=== PATIENT | male | born 1980 | race Caucasian/White ===

== ENCOUNTER 2018-05-11 19:30 | Emergency (ER) | payer OTHER ==
[~2018-05-11] VITALS: Ht 182.9 cm; Wt 95.3 kg
[~2018-05-11 19:30] MED LIST: DOXYCYCLINE 10100 MG PO; HYDROCODON-ACE1 EAC7 PO; HYDROCODONE-AP1 EAC6 PO; LIDOCAINE VISC100 M1 SWISH&SPIT; NICOTINE TRANSD21 M1 TRANSDERM; NORCO 5-325 TA1 EAC1 PO; PENICILLIN V P500 MG PO; PENICILLIN VK250 MG PO; TRAMADOL 50 MG50 MG PO; VICODIN ES TAB1 EACH; [UNRECOGNIZED DRUG - REMARK]
[2018-05-11 19:54] LABS: ABSOLUTE BASOPHILS 0.1 thou/uL (0.0-0.2); ABSOLUTE EOSINOPHILS 0.3 thou/uL (0.0-0.7); ABSOLUTE LYMPHOCYTES 5.8 thou/uL (0.8-5.3); ABSOLUTE MONOCYTES 1.3 thou/uL (0.0-1.2); ABSOLUTE NEUTROPHILS 7.8 thou/uL (1.6-8.1); BASOPHILS 0.6 %; HEMATOCRIT 43.7 % (42.0-52.0); HEMOGLOBIN 14.4 gm/dL (14.0-18.0); LYMPHOCYTES 37.9 %; MCH 31.1 pg (26.0-34.0); MCHC 32.9 g/dL (28.0-37.0); MCV 94.5 fL (80.0-100.0); MONOCYTES 8.4 %; MPV 6.6 fl. (7.2-11.1); NUCLEATED RBCS 0 /100WBC; PLATELET COUNT* 429 thou/uL (150-400); POLYS 51.1 %; RBC 4.62 mil/uL (4.50-6.00); RDW-CV 14.2 % (10.5-14.5); WBC 15.2 thou/uL (4.0-11.0)
[2018-05-11 20:04] LABS: CALCIUM 9.6 mg/dL (8.5-10.1); POTASSIUM 4.5 mmol/L (3.5-5.1)
[2018-05-11 20:09] LABS: ALBUMIN 4.1 g/dL (3.4-5.0); TOTAL BILIRUBIN 0.5 mg/dL (<0.1-1.0); TOTAL PROTEIN 7.6 g/dL (6.4-8.2)
[2018-05-11] MEDS ORDERED: NORCO 7.5-3251 EACH PO (20:47)
[2018-05-11 21:16] VITALS: BP 123/64
== END 2018-05-11 21:22 | disposition home or self-care (01) ==
LOC: M.ERS 19:30
PROVIDERS: Emergency Medicine
DX: S43.102A Unspecified dislocation of left acromioclavicular joint, initial encounter (principal); W10.9XXA Fall (on) (from) unspecified stairs and steps, initial encounter; Y93.89 Activity, other specified; Y92.89 Other specified places as the place of occurrence of the external cause; Y99.8 Other external cause status; F17.210 Nicotine dependence, cigarettes, uncomplicated

== ENCOUNTER 2018-10-02 14:06 | Emergency (ER) | payer OTHER ==
[~2018-10-02] VITALS: Ht 182.9 cm; Wt 86.2 kg
[~2018-10-02 14:06] MED LIST changes: +NORCO 7.5-3251 EACH PO
[2018-10-02] MEDS ORDERED: HYDROCODONE-AP1 EAC6 PO (15:04)
[2018-10-02 15:31] VITALS: BP 145/92
== END 2018-10-02 15:32 | disposition home or self-care (01) ==
LOC: M.ERS 14:06
DX: S43.015A Anterior dislocation of left humerus, initial encounter (principal); F17.210 Nicotine dependence, cigarettes, uncomplicated; Z88.6 Allergy status to analgesic agent; X50.1XXA Overexertion from prolonged static or awkward postures, initial encounter; Y92.89 Other specified places as the place of occurrence of the external cause; Y93.H1 Activity, digging, shoveling and raking; Y99.8 Other external cause status

== ENCOUNTER 2019-02-10 07:41 | Emergency (ER) | payer OTHER ==
[~2019-02-10] VITALS: Ht 172.7 cm; Wt 75.8 kg
[2019-02-10 08:08] LABS: ABSOLUTE BASOPHILS 0.1 thou/uL (0.0-0.2); ABSOLUTE EOSINOPHILS 0.2 thou/uL (0.0-0.7); ABSOLUTE LYMPHOCYTES 1.8 thou/uL (0.8-5.3); ABSOLUTE MONOCYTES 0.9 thou/uL (0.0-1.2); ABSOLUTE NEUTROPHILS 9.7 thou/uL (1.6-8.1); BASOPHILS 0.5 %; EOSINOPHILS 1.7 %; HEMOGLOBIN 14.1 gm/dL (14.0-18.0); LYMPHOCYTES 14.4 %; MCH 32.1 pg (26.0-34.0); MCHC 34.5 g/dL (28.0-37.0); MCV 93.3 fL (80.0-100.0); MONOCYTES 7.4 %; MPV 6.8 fl. (7.2-11.1); NUCLEATED RBCS 0 /100WBC; PLATELET COUNT* 340 thou/uL (150-400); RBC 4.39 mil/uL (4.50-6.00); RDW-CV 13.4 % (10.5-14.5); WBC 12.8 thou/uL (4.0-11.0)
[2019-02-10 08:15] LABS: CREATININE 0.8 mg/dL (0.6-1.3); POTASSIUM 3.7 mmol/L (3.5-5.1)
[2019-02-10 08:20] LABS: ALBUMIN 3.8 g/dL (3.4-5.0); TOTAL BILIRUBIN 0.5 mg/dL (<0.1-1.0); TOTAL PROTEIN 7.1 g/dL (6.4-8.2)
[2019-02-10 09:53] VITALS: BP 123/78
== END 2019-02-10 09:53 | disposition short-term general hospital (02) ==
LOC: M.ERS 07:41
PROVIDERS: Family Medicine
DX: S00.83XA Contusion of other part of head, initial encounter (principal); S20.412A Abrasion of left back wall of thorax, initial encounter; S20.411A Abrasion of right back wall of thorax, initial encounter; J93.9 Pneumothorax, unspecified; F17.210 Nicotine dependence, cigarettes, uncomplicated; I10 Essential (primary) hypertension; Z88.6 Allergy status to analgesic agent; Y04.2XXA Assault by strike against or bumped into by another person, initial encounter; Y92.89 Other specified places as the place of occurrence of the external cause; Y93.89 Activity, other specified; Y99.8 Other external cause status

== ENCOUNTER 2019-04-20 14:37 | Emergency (ER) | payer OTHER, MEDICAID ==
[~2019-04-20] VITALS: Ht 182.9 cm; Wt 81.7 kg
[2019-04-20] MEDS ORDERED: MELOXICAM15 MG PO ×2 (14:59→15:00)
[2019-04-20 15:24] VITALS: BP 190/90
== END 2019-04-20 15:19 ==
LOC: M.ERS 14:37
DX: M25.512 Pain in left shoulder (principal); I10 Essential (primary) hypertension; F17.210 Nicotine dependence, cigarettes, uncomplicated; Z98.890 Other specified postprocedural states; Z88.6 Allergy status to analgesic agent

== ENCOUNTER 2019-06-17 17:02 | Emergency (ER) | payer OTHER, MEDICAID ==
[~2019-06-17] VITALS: Ht 182.9 cm; Wt 77.1 kg
[~2019-06-17 17:02] MED LIST changes: +MELOXICAM15 MG PO
[2019-06-17] MEDS ORDERED: NORCO 5-325 TA1 EAC1 PO (18:39)
[2019-06-17 19:26] VITALS: BP 152/103
== END 2019-06-17 19:28 | disposition home or self-care (01) ==
LOC: M.ERS 17:02
DX: S43.085A Other dislocation of left shoulder joint, initial encounter (principal); I10 Essential (primary) hypertension; F17.210 Nicotine dependence, cigarettes, uncomplicated; Z88.8 Allergy status to other drugs, medicaments and biological substances; X58.XXXA Exposure to other specified factors, initial encounter; Y92.89 Other specified places as the place of occurrence of the external cause; Y93.89 Activity, other specified; Y99.8 Other external cause status

== ENCOUNTER 2019-06-22 23:14 | Emergency (ER) | payer OTHER, MEDICAID ==
[~2019-06-22] VITALS: Ht 182.9 cm; Wt 79.0 kg
[2019-06-23] MEDS ORDERED: TYLENOL WITH CO1 TA1 PO (00:28)
[2019-06-23 01:08] VITALS: BP 111/62
== END 2019-06-23 02:20 | disposition home or self-care (01) ==
LOC: M.ERS 23:14
DX: S86.111A Strain of other muscle(s) and tendon(s) of posterior muscle group at lower leg level, right leg, initial encounter (principal); I10 Essential (primary) hypertension; F17.210 Nicotine dependence, cigarettes, uncomplicated; Z98.890 Other specified postprocedural states; Z88.8 Allergy status to other drugs, medicaments and biological substances; X50.0XXA Overexertion from strenuous movement or load, initial encounter; Y92.89 Other specified places as the place of occurrence of the external cause; Y93.89 Activity, other specified; Y99.8 Other external cause status

== ENCOUNTER 2019-06-29 05:37 | Emergency (ER) | payer OTHER, MEDICAID ==
[~2019-06-29] VITALS: Ht 182.9 cm; Wt 78.9 kg
[~2019-06-29 05:37] MED LIST changes: +TYLENOL WITH CO1 TA1 PO
[2019-06-29] MEDS ORDERED: NORCO 5-325 TA1 EAC1 PO (06:26)
[2019-06-29 08:02] VITALS: BP 108/87
== END 2019-06-29 08:03 | disposition home or self-care (01) ==
LOC: M.ERS 05:37
DX: S43.015A Anterior dislocation of left humerus, initial encounter (principal); I10 Essential (primary) hypertension; F17.210 Nicotine dependence, cigarettes, uncomplicated; Z88.6 Allergy status to analgesic agent; V19.69XA Unspecified pedal cyclist injured in collision with other motor vehicles in traffic accident, initial encounter; Y93.89 Activity, other specified; Y92.89 Other specified places as the place of occurrence of the external cause; Y99.8 Other external cause status

== ENCOUNTER 2019-07-04 01:31 | Emergency (ER) | payer OTHER, MEDICAID ==
[~2019-07-04] VITALS: Ht 182.9 cm; Wt 81.7 kg
[2019-07-04] MEDS ORDERED: PERCOCET 5-3251 EACH PO (02:00)
[2019-07-04 03:05] VITALS: BP 138/91
== END 2019-07-04 03:05 | disposition home or self-care (01) ==
LOC: M.ERS 01:31
DX: S43.005A Unspecified dislocation of left shoulder joint, initial encounter (principal); I10 Essential (primary) hypertension; F43.10 Post-traumatic stress disorder, unspecified; F17.210 Nicotine dependence, cigarettes, uncomplicated; Z88.5 Allergy status to narcotic agent; X50.0XXA Overexertion from strenuous movement or load, initial encounter; Y93.89 Activity, other specified; Y92.89 Other specified places as the place of occurrence of the external cause; Y99.8 Other external cause status

== ENCOUNTER 2019-07-06 08:58 | Emergency (ER) | payer OTHER, MEDICAID ==
[~2019-07-06] VITALS: Ht 182.9 cm; Wt 79.4 kg
[~2019-07-06 08:58] MED LIST changes: +PERCOCET 5-3251 EACH PO
[2019-07-06 09:53] VITALS: BP 148/86
== END 2019-07-06 09:53 | disposition home or self-care (01) ==
LOC: M.ERS 08:58
DX: M25.512 Pain in left shoulder (principal); I10 Essential (primary) hypertension; F17.210 Nicotine dependence, cigarettes, uncomplicated; Z88.6 Allergy status to analgesic agent

== ENCOUNTER 2019-07-06 17:55 | Emergency (ER) | payer OTHER, MEDICAID ==
[~2019-07-06] VITALS: Ht 182.9 cm; Wt 81.7 kg
[2019-07-06 18:06] VITALS: BP 126/87
== END 2019-07-06 18:07 ==
LOC: M.ERS 17:55
DX: M25.512 Pain in left shoulder (principal); I10 Essential (primary) hypertension; F17.210 Nicotine dependence, cigarettes, uncomplicated; Z88.6 Allergy status to analgesic agent

== ENCOUNTER 2019-08-05 11:03 | Emergency (ER) | payer OTHER, MEDICAID ==
[~2019-08-05] VITALS: Ht 182.9 cm; Wt 81.7 kg
[2019-08-05] MEDS ORDERED: ZANAFLEX4 MG PO (11:34)
[2019-08-05] MEDS ORDERED: IBUPROFEN 800800 M1 PO (11:34)
[2019-08-05] MEDS ORDERED: AUGMENTIN 875-1 EACH PO (13:07)
[2019-08-05 13:29] VITALS: BP 118/76
== END 2019-08-05 13:17 | disposition home or self-care (01) ==
LOC: M.ERS 11:03
DX: S16.1XXA Strain of muscle, fascia and tendon at neck level, initial encounter (principal); S29.012A Strain of muscle and tendon of back wall of thorax, initial encounter; S60.221A Contusion of right hand, initial encounter; S20.211A Contusion of right front wall of thorax, initial encounter; S00.83XA Contusion of other part of head, initial encounter; S00.03XA Contusion of scalp, initial encounter; J32.9 Chronic sinusitis, unspecified; I10 Essential (primary) hypertension; F17.210 Nicotine dependence, cigarettes, uncomplicated; Z88.6 Allergy status to analgesic agent; Y08.89XA Assault by other specified means, initial encounter; Y93.89 Activity, other specified; Y92.89 Other specified places as the place of occurrence of the external cause; Y99.8 Other external cause status

== ENCOUNTER 2019-08-14 20:15 | Emergency (ER) | payer OTHER, MEDICAID ==
[~2019-08-14] VITALS: Ht 182.9 cm; Wt 81.7 kg
[~2019-08-14 20:15] MED LIST changes: +AUGMENTIN 875-1 EACH PO; +IBUPROFEN 800800 M1 PO; +ZANAFLEX4 MG PO
[2019-08-14 20:48] LABS: ABSOLUTE BASOPHILS 0.1 thou/uL (0.0-0.2); ABSOLUTE EOSINOPHILS 0.3 thou/uL (0.0-0.7); ABSOLUTE LYMPHOCYTES 1.8 thou/uL (0.8-5.3); ABSOLUTE MONOCYTES 0.8 thou/uL (0.0-1.2); ABSOLUTE NEUTROPHILS 4.3 thou/uL (1.6-8.1); BASOPHILS 0.9 %; EOSINOPHILS 3.6 %; HEMATOCRIT 40.6 % (42.0-52.0); HEMOGLOBIN 13.9 gm/dL (14.0-18.0); LYMPHOCYTES 25.2 %; MCH 32.6 pg (26.0-34.0); MCHC 34.2 g/dL (28.0-37.0); MCV 95.2 fL (80.0-100.0); MONOCYTES 10.9 %; MPV 6.9 fl. (7.2-11.1); NUCLEATED RBCS 0 /100WBC; PLATELET COUNT* 350 thou/uL (150-400); POLYS 59.4 %; RBC 4.27 mil/uL (4.50-6.00); RDW-CV 14.4 % (10.5-14.5); WBC 7.3 thou/uL (4.0-11.0)
[2019-08-14 20:57] LABS: CALCIUM 7.9 mg/dL (8.5-10.1); CREATININE 0.9 mg/dL (0.6-1.3); POTASSIUM 3.7 mmol/L (3.5-5.1)
[2019-08-14 21:01] LABS: ALBUMIN 3.8 g/dL (3.4-5.0); TOTAL BILIRUBIN 0.3 mg/dL (<0.1-1.0)
[2019-08-14 21:22] VITALS: BP 120/78
[2019-08-15] MEDS ORDERED: HYDROXYZINE HCL25 M2 PO ×2 (09:01)
--- NOTE | 2019-08-15 09:45 | EKG ---
[place] [address] ELECTROCARDIOGRAM REPORT Name: FAMILIA WOODS TODMIRNA Room: [facility]#: [id number] Admission: 08/14/19 Attend Phys: Discharge: 08/14/19 Date of : 76 Date of Service: 08/14/192028 Report #: [id number] THIS REPORT FOR: //name// [facility] ED Test Date: 2019-08-14 Test Time: 20:29:54 Pat Name: FAMILIA WOODS Department: Room: Gender: Crop Nutrition Scientist: [place] : 1980 Requested By: Anatoliy Wang Order Number: [id number] MD: Isaac Covington Measurements Intervals [place] Rate: 83 P: 59 [place]: 138 QRS: 67 QRSD: 93 T: 38 QT: 368 QTc: 433 Interpretive Statements Sinus rhythm ST elev, probable normal early repol pattern Baseline wander in lead(s) V2 Compared to ECG 04/28/2016 07:55:27 No significant changes Electronically Signed On 08-15-2019 9:44:26 MANAGER FIELD by Isaac Covington [email or web address] <ELECTRONICALLY SIGNED> By: Isaac Covington MD, [facility] 08/15/19 0944 28 28 Isaac Covington MD, [facility] /EPI
== END 2019-08-14 21:22 | disposition home or self-care (01) ==
LOC: M.ERS 20:15
PROVIDERS: Emergency Medicine Emergency Medical Services
DX: R56.9 Unspecified convulsions (principal); F17.210 Nicotine dependence, cigarettes, uncomplicated; Z88.6 Allergy status to analgesic agent; I10 Essential (primary) hypertension

== ENCOUNTER 2019-08-15 02:08 | Observation (INO) | payer OTHER, MEDICAID ==
[~2019-08-15] VITALS: Ht 182.9 cm; Wt 81.6 kg
--- NOTE | ~2019-08-15 | EEG ---
[address] [address] EEG STUDY REPORT Name: FAMILIA WOODS Room: [address] [place]#: [id number] Admission: 08/15/19 Attend Phys: Stephanie Weeks Discharge: Date of : 76 Report #: [id number] THIS REPORT FOR: //name// CC: [facility] physician/PCP Arian Pimentel DATE OF SERVICE: 08/15/2019 This patient is being evaluated for the possibility of seizure. EEG was done by placing the electrode by standard 10-20 system of electrode placement. Both referential and sequential montages were used for recording. Background activity in this patient's EEG is about 10 Hz and 30 microvolt. It is a symmetrical activity. The patient became drowsy and that is associated with bilateral slowing. Photic stimulation is unremarkable. Throughout the record, no active epileptiform activity was noticed. IMPRESSION: This patient's EEG is unremarkable. No active epileptiform activity was noticed. It might be mentioned that EEG can be normal in a patient with seizure disorder. Thank you very much for this referral. By: [id number] Harvey MD /nt
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
[2019-08-15 02:32] LABS: NUCLEATED RBCS 0 /100WBC
[2019-08-15 02:33] LABS: ABSOLUTE BASOPHILS 0.1 thou/uL (0.0-0.2); ABSOLUTE EOSINOPHILS 0.3 thou/uL (0.0-0.7); ABSOLUTE NEUTROPHILS 5.7 thou/uL (1.6-8.1); BASOPHILS 1.1 %; EOSINOPHILS 3.4 %; HEMATOCRIT 40.7 % (42.0-52.0); HEMOGLOBIN 14.1 gm/dL (14.0-18.0); LYMPHOCYTES 29.7 %; MCH 32.9 pg (26.0-34.0); MCHC 34.7 g/dL (28.0-37.0); MCV 94.7 fL (80.0-100.0); MONOCYTES 9.9 %; MPV 6.7 fl. (7.2-11.1); PLATELET COUNT* 368 thou/uL (150-400); POLYS 55.9 %; RBC 4.29 mil/uL (4.50-6.00); RDW-CV 14.6 % (10.5-14.5); WBC 10.2 thou/uL (4.0-11.0)
[2019-08-15 02:34] VITALS: BP 120/80
[2019-08-15 02:35] LABS: URINE BILIRUBIN NEGATIVE (Negative); URINE BLOOD 1+ (Negative); URINE CLARITY CLEAR; URINE COLOR YELLOW; URINE GLUCOSE-RANDOM NEGATIVE (Negative); URINE KETONES NEGATIVE (Negative); URINE LEUKOCYTES-REFLEX NEGATIVE (Negative); URINE NITRITE-REFLEX NEGATIVE (Negative); URINE PROTEIN NEGATIVE (Negative); URINE SPECIFIC GRAVITY 1.025 (1.005-1.030); URINE UROBILINOGEN 0.2 E.U./dl (0.2-1.0)
[2019-08-15 02:41] LABS: CALCIUM 8.5 mg/dL (8.5-10.1); CREATININE 0.8 mg/dL (0.6-1.3); POTASSIUM 4.1 mmol/L (3.5-5.1)
[2019-08-15 02:43] LABS: AMP/METHAMP POSITIVE (Negative); BARBITURATES Negative (Negative); BENZODIAZEPINES Negative (Negative); COCAINE Negative (Negative); METHADONE Negative (Negative); OPIATES Negative (Negative); PCP Negative (Negative); THC Negative (Negative)
[2019-08-15 02:44] LABS: BACTERIA-REFLEX None Seen /HPF (None Seen); CASTS None Seen /LPF (None Seen); CRYSTALS None Seen /LPF (None Seen); SQUAMOUS NONE SEEN /LPF (0-3); URINE RBC 3-10 Few /HPF (0-2); URINE WBC-REFLEX None Seen /HPF (0-5)
[2019-08-15 02:45] LABS: ALBUMIN 3.9 g/dL (3.4-5.0); TOTAL BILIRUBIN 0.3 mg/dL (<0.1-1.0); TOTAL PROTEIN 7.2 g/dL (6.4-8.2)
[2019-08-15 08:57] VITALS: BP 108/63
[2019-08-15] MEDS ORDERED: HYDROXYZINE HCL25 M2 PO ×2 (09:01)
--- NOTE | 2019-08-15 09:46 | EKG ---
[place] [address] ELECTROCARDIOGRAM REPORT Name: FAMILIA WOODS TODMIRNA Room: [address] M.R.#: [id number] Admission: 08/15/19 Attend Phys: Arian Pimentel Discharge: Date of : 76 Date of Service: 08/15/19221 Report #: [id number] THIS REPORT FOR: //name// [facility] ED Test Date: 2019-08-15 Test Time: 02:22:02 Pat Name: FAMILIA WOODS Department: Room: [facility] Gender: M Marketing Developer: [place] : 1980 Requested By: Anatoliy Wang Order Number: [id number] MD: Isaac Covington Measurements Intervals [place] Rate: 74 P: 61 [place]: 143 QRS: 84 QRSD: 92 T: 53 QT: 393 QTc: 436 Interpretive Statements Sinus rhythm ST elev, probable normal early repol pattern Compared to ECG 04/28/2016 07:55:27 No significant changes Electronically Signed On 08-15-2019 9:45:16 MANAGER DEVELOPMENTAL by Isaac Covington [email or web address] <ELECTRONICALLY SIGNED> By: Isaac Covington MD, [facility] 08/15/19 0945 1 1 Isaac Covington MD, [facility] /EPI
[2019-08-15 14:14] VITALS: BP 110/62
--- NOTE | 2019-08-15 17:15 | NUR ---
NEUROLOGY CONSULT CALLED R/T CONSULT; DR ROSEN ORDER RECEIVED CLEARED FROM NEUROLOGY AND FOLLOW UP WITH OUTPATIENT NEUROLOGY APPOINTMENT WITH DR DODSON
[2019-08-15 17:28] VITALS: BP 110/62
--- NOTE | 2019-08-15 18:43 | NUR ---
PT ATE 100% OF BREAKFAST, LUNCH, AND DINNER TODAY.
[2019-08-15 18:45] VITALS: BP 116/72
== END 2019-08-15 18:45 | disposition home or self-care (01) ==
LOC: M.ERS 02:08 → M.TBA-ER 04:58
PROVIDERS: Emergency Medicine Emergency Medical Services; ADMIT Internal Medicine
DX: G40.89 Other seizures (principal); F43.10 Post-traumatic stress disorder, unspecified; F19.10 Other psychoactive substance abuse, uncomplicated; I10 Essential (primary) hypertension; S00.83XA Contusion of other part of head, initial encounter; X58.XXXA Exposure to other specified factors, initial encounter; Y93.89 Activity, other specified; Y92.89 Other specified places as the place of occurrence of the external cause; Y99.8 Other external cause status

== ENCOUNTER 2019-09-20 22:28 | Inpatient (IN) | payer OTHER, MEDICAID ==
[~2019-09-20] VITALS: Ht 182.9 cm; Wt 79.4 kg
[~2019-09-20 22:28] MED LIST changes: +HYDROXYZINE HCL25 M2 PO
[2019-09-20 22:29] VITALS: BP 124/72
[2019-09-20 23:33] LABS: ABSOLUTE BASOPHILS 0.1 thou/uL (0.0-0.2); ABSOLUTE EOSINOPHILS 0.2 thou/uL (0.0-0.7); ABSOLUTE LYMPHOCYTES 1.5 thou/uL (0.8-5.3); ABSOLUTE MONOCYTES 1.1 thou/uL (0.0-1.2); ABSOLUTE NEUTROPHILS 8.7 thou/uL (1.6-8.1); BASOPHILS 0.7 %; EOSINOPHILS 1.9 %; HEMATOCRIT 39.3 % (42.0-52.0); HEMOGLOBIN 13.6 gm/dL (14.0-18.0); LYMPHOCYTES 12.7 %; MCH 32.1 pg (26.0-34.0); MCHC 34.6 g/dL (28.0-37.0); MONOCYTES 9.6 %; MPV 7.5 fl. (7.2-11.1); NUCLEATED RBCS 0 /100WBC; PLATELET COUNT* 332 thou/uL (150-400); POLYS 75.1 %; RBC 4.23 mil/uL (4.50-6.00); RDW-CV 13.7 % (10.5-14.5); WBC 11.7 thou/uL (4.0-11.0)
[2019-09-20 23:45] LABS: CALCIUM 8.9 mg/dL (8.5-10.1); CREATININE 0.8 mg/dL (0.6-1.3); POTASSIUM 3.9 mmol/L (3.5-5.1)
[2019-09-21 00:39] LABS: ESR (SEDRATE) 16 mm/hr (0-15)
[2019-09-21 00:44] LABS: URINE BILIRUBIN NEGATIVE (Negative); URINE BLOOD 2+ (Negative); URINE CLARITY CLEAR; URINE COLOR DARK YELLOW; URINE GLUCOSE-RANDOM NEGATIVE (Negative); URINE KETONES TRACE (Negative); URINE LEUKOCYTES-REFLEX NEGATIVE (Negative); URINE NITRITE-REFLEX NEGATIVE (Negative); URINE PROTEIN NEGATIVE (Negative); URINE SPECIFIC GRAVITY >= 1.030 (1.005-1.030); URINE UROBILINOGEN 0.2 E.U./dl (0.2-1.0)
[2019-09-21 00:52] LABS: BACTERIA-REFLEX >30 Many /HPF (None Seen); CRYSTALS None Seen /LPF (None Seen); FINE GRANULAR CASTS 0-3 Few /LPF (None Seen); HYALINE CASTS 0-3 Few /LPF (None Seen); MUCUS >6 Heavy strn/LPF (None Seen); SQUAMOUS 0-3 Few /LPF (0-3); URINE WBC-REFLEX 6-15 Few /HPF (0-5)
[2019-09-21 00:58] LABS: AMP/METHAMP POSITIVE (Negative); BARBITURATES Negative (Negative); BENZODIAZEPINES Negative (Negative); COCAINE Negative (Negative); METHADONE Negative (Negative); OPIATES POSITIVE (Negative); PCP Negative (Negative); THC POSITIVE (Negative)
[2019-09-21 02:45] VITALS: BP 124/72
[2019-09-21 03:00] VITALS: BP 131/67
--- NOTE | 2019-09-21 07:58 | NUR ---
PATIENT ADMITTED TO ROOM 316 FROM ER AT APPROXIMATELY 0250. REPORT GIVEN FROM ER NURSE. PATIENT VSS ON RA. PATIENT VERY ANXIOUS AND MOVING AROUND AND NOT WANTING TO SIT STILL. PATIENT COMING IN AND OUT OF ROOM. PATIENT BEING VERY VULGAR AND PLAYING WITH HIS GENITALS IN FRONT OF NURSE. TILE INSPECTOR AND SECURITY NOTIFIED. SECURITY HERE AND SPOKE WITH PATIENT AND INFORMED HIME TO STAY IN HIS ROOM AND TO COVER HIMSELF UP WITH HIS GOWN AND TO STOP BEING OBSCENE WITH NURSE. PATIENT ORIENTED TO ROOM AND POLICIES AND FALL AGREEMENT SIGNED. ASSESSMENT CHARTED. IV IN LEFT FOREARM-SL. PAIN MEDICATION GIVEN AT 0641 THIS AM VIA IV. PATIENT WAS IN ROOM IN HIS BED. PATIENT SPOKE WITH STAFF APPROXIMATELY 0715 IN THE POWERS AND PATIENT HAD HIS HOME CLOTHES ON AND ASKED MANAGER BANQUET TO CALL MAINTENANCE REGARDING PROBLEMS WITH HIS TOILET. MANAGER BANQUET WENT TO CALL MAINTENANCE AND CAME BACK AND PATIENT WAS GONE. TILE INSPECTOR AND SECURITY WAS NOTIFIED. PATIENT WAS NOT LOCATED IN BUILDING. SECURITY DID NOTIFY [employer] [place] [employer] OF PATIENT LEAVING THE HOSPITAL.
== END 2019-09-21 07:30 | disposition left against medical advice (07) | DRG 603 ==
LOC: M.ERS 22:28 → M.TBA-ER 09-21 01:13 → M.3W 09-21 02:55
PROVIDERS: Emergency Medicine; ADMIT Internal Medicine
DX: L03.116 Cellulitis of left lower limb (principal); I10 Essential (primary) hypertension; L03.115 Cellulitis of right lower limb; F17.210 Nicotine dependence, cigarettes, uncomplicated; Z53.29 Procedure and treatment not carried out because of patient's decision for other reasons; Z88.8 Allergy status to other drugs, medicaments and biological substances; Z79.899 Other long term (current) drug therapy

== ENCOUNTER 2019-09-22 18:43 | Inpatient (IN) | payer OTHER, MEDICAID ==
[~2019-09-22] VITALS: Ht 182.9 cm; Wt 84.3 kg
[2019-09-22 18:45] VITALS: BP 136/82
[2019-09-22 20:06] LABS: ABSOLUTE BASOPHILS 0.1 thou/uL (0.0-0.2); ABSOLUTE EOSINOPHILS 0.4 thou/uL (0.0-0.7); ABSOLUTE LYMPHOCYTES 1.7 thou/uL (0.8-5.3); ABSOLUTE MONOCYTES 0.8 thou/uL (0.0-1.2); ABSOLUTE NEUTROPHILS 5.9 thou/uL (1.6-8.1); BASOPHILS 1.3 %; EOSINOPHILS 4.2 %; HEMATOCRIT 36.9 % (42.0-52.0); HEMOGLOBIN 12.6 gm/dL (14.0-18.0); LYMPHOCYTES 19.1 %; MCH 32.7 pg (26.0-34.0); MCHC 34.1 g/dL (28.0-37.0); MONOCYTES 9.4 %; MPV 7.5 fl. (7.2-11.1); NUCLEATED RBCS 0 /100WBC; PLATELET COUNT* 324 thou/uL (150-400); RBC 3.85 mil/uL (4.50-6.00); RDW-CV 13.8 % (10.5-14.5); WBC 8.9 thou/uL (4.0-11.0)
[2019-09-22 20:23] LABS: CALCIUM 8.3 mg/dL (8.5-10.1); CREATININE 0.7 mg/dL (0.6-1.3); POTASSIUM 3.8 mmol/L (3.5-5.1)
[2019-09-22 20:28] LABS: ALBUMIN 3.2 g/dL (3.4-5.0); TOTAL BILIRUBIN 0.1 mg/dL (<0.1-1.0); TOTAL PROTEIN 6.5 g/dL (6.4-8.2)
[2019-09-22 23:36] VITALS: BP 133/75
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
--- NOTE | 2019-09-23 02:46 | NUR ---
PT FLIPPED OFF THE ACCOUNT DEVELOPMENT SPECIALIST AND STATED "FUCK YOU" TO HIM.
[2019-09-23 05:13] VITALS: BP 115/65
[2019-09-23 09:13] VITALS: BP 128/77
--- NOTE | 2019-09-23 11:10 | NUR ---
DR. RUCKER PAGED OVERHEAD R/T PT C/O "POPPING SHOULDER OUT OF PLACE".
--- NOTE | 2019-09-23 11:57 | NUR ---
ORTHO RESIDENT AT BEDSIDE FOR ASSESSMENT
--- NOTE | 2019-09-23 13:02 | NUR ---
SEE HARD COPY OF REDUCTION OF SHOULDER
[2019-09-23 13:13] VITALS: BP 138/97
--- NOTE | 2019-09-23 14:58 | NUR ---
PT PROVIDED SANDWHICH AND SNACK PER REQUEST
[2019-09-23 15:17] VITALS: BP 138/97
[2019-09-23 15:30] VITALS: BP 141/92
--- NOTE | 2019-09-23 17:13 | NUR ---
PATIENT ADMITTED TO ROOM 307 FROM ER. ALERT AND ORIENTED. UP AD CHANDU. WOUND PHOTOS TAKEN OF PATRICIA FEET CELLULITIS. IV SL, SCHED ABX. PATIENT RATING PATRICIA FEET PAIN 8/10, SPOKE WITH DR. RUCKER AND NO FURTHER PAIN MEDS TO BE GIVEN. SCHED IBUPROFEN AND LIDOCAINE PATCH. ORIENTED TO CALL LIGHT. REG DIET MENU GIVEN. CALL LIGHT WITHIN REACH, WILL CONTINUE TO MONITOR.
[2019-09-23 19:22] LABS: URINE BILIRUBIN NEGATIVE (Negative); URINE BLOOD NEGATIVE (Negative); URINE CLARITY CLEAR; URINE COLOR YELLOW; URINE GLUCOSE-RANDOM NEGATIVE (Negative); URINE KETONES NEGATIVE (Negative); URINE LEUKOCYTES-REFLEX NEGATIVE (Negative); URINE NITRITE-REFLEX NEGATIVE (Negative); URINE PROTEIN NEGATIVE (Negative); URINE UROBILINOGEN 0.2 E.U./dl (0.2-1.0)
[2019-09-23 19:33] LABS: AMP/METHAMP Negative (Negative); BARBITURATES Negative (Negative); BENZODIAZEPINES Negative (Negative); COCAINE Negative (Negative); METHADONE Negative (Negative); OPIATES Negative (Negative); PCP Negative (Negative); THC Negative (Negative)
[2019-09-23 21:18] VITALS: BP 141/79
[2019-09-24 04:40] LABS: HEMOGLOBIN 12.9 gm/dL (14.0-18.0); MCH 32.5 pg (26.0-34.0); MCV 95.4 fL (80.0-100.0); MPV 7.4 fl. (7.2-11.1); RBC 3.99 mil/uL (4.50-6.00); RDW-CV 14.2 % (10.5-14.5); WBC 6.4 thou/uL (4.0-11.0)
[2019-09-24 05:30] LABS: ALBUMIN 2.8 g/dL (3.4-5.0); CALCIUM 8.3 mg/dL (8.5-10.1); CREATININE 0.7 mg/dL (0.6-1.3); MAGNESIUM 1.9 mg/dL (1.8-2.4); POTASSIUM 3.6 mmol/L (3.5-5.1); TOTAL BILIRUBIN 0.1 mg/dL (<0.1-1.0); TOTAL PROTEIN 5.9 g/dL (6.4-8.2)
--- NOTE | 2019-09-24 05:50 | NUR ---
PT HAD BOX LUNCH AND SNACKS AT HS, RECEIVED IBUPROFEN AND SLEPT WELL OVERNIGHT. R AC IV VANC GIVEN ORDERED. UP AD CHANDU IN ROOM TO VOID INDEP WITHOUT DIFFICULTY. AOX4, PLEASANT AND COOPERATIVE THIS SHIFT. IMMOBILIZER IN PLACE TO L ARM. AM LABS DRAWN, TO HAVE VANC TROUGH 0800. ABLE TO USE CALL LITE AND MAKE NEEDS KNOWN.
[2019-09-24] MEDS ORDERED: IBUPROFEN 600600 M1 PO (08:37)
[2019-09-24] MEDS ORDERED: KEFLEX500 M1 PO (08:37)
[2019-09-24 09:27] VITALS: BP 132/84
[2019-09-24 11:27] VITALS: BP 132/84
--- NOTE | 2019-09-24 11:28 | NUR ---
SW discussed with nursing and US to provide pt with the resources/referral list for PCP and ortho follow up as well as community resources for pt. Pt to dc today.
--- NOTE | 2019-09-24 16:33 | NUR ---
PT DISCHARGED TO HOME SELF CARE. PT STABLE. ALL DISCHARGE PAPERWORK REVIEWED WITH THE PT. PT HAS ALL BELONGINGING. TRANSPORTED TO [facility]IA HOSPITAL PERSONNEL.
--- NOTE | 2019-09-24 16:43 | NUR ---
PT BEING DISCHARGE TO SELF CARE. PT STABLE. ALL DISCHARGE INSTRUCTIONS REVIEWED WITH THE PT. PAPERWORK GIVE. PT HAS ALL BELONGINGING. aTTEMPTED TO OBTAIN ADDRESS FOR CAB TICKET. PT LEFT DOWN THE BACK STAIRS WITH ALL BELONGING LEAVING CAB TICKET BEHIND.
== END 2019-09-24 13:30 | disposition home or self-care (01) | DRG 563 ==
LOC: M.ERS 18:43 → M.3W 20:36 → M.TBA-ER 20:36 → M.3W 09-23 15:32
PROVIDERS: Emergency Medicine; Internal Medicine; ADMIT Internal Medicine
PROC: 0PSDXZZ Reposition Left Humeral Head, External Approach (ICD-10-PCS; principal; 2019-09-23)
DX: S43.005A Unspecified dislocation of left shoulder joint, initial encounter (principal); L03.116 Cellulitis of left lower limb; L03.115 Cellulitis of right lower limb; I10 Essential (primary) hypertension; F15.10 Other stimulant abuse, uncomplicated; F17.210 Nicotine dependence, cigarettes, uncomplicated; M25.312 Other instability, left shoulder; X58.XXXA Exposure to other specified factors, initial encounter; Z59.0 Homelessness; Z87.81 Personal history of (healed) traumatic fracture; Z88.8 Allergy status to other drugs, medicaments and biological substances; Y93.89 Activity, other specified; Y92.89 Other specified places as the place of occurrence of the external cause; Y99.8 Other external cause status; Z79.899 Other long term (current) drug therapy

== ENCOUNTER 2019-10-03 11:23 | Emergency (ER) | payer OTHER, MEDICAID ==
[~2019-10-03] VITALS: Ht 182.9 cm; Wt 83.9 kg
[~2019-10-03 11:23] MED LIST changes: +IBUPROFEN 600600 M1 PO; +KEFLEX500 M1 PO
[2019-10-03 11:37] VITALS: BP 104/93
== END 2019-10-03 11:38 | disposition home or self-care (01) ==
LOC: M.ERS 11:23
DX: B34.9 Viral infection, unspecified (principal); I10 Essential (primary) hypertension; F17.210 Nicotine dependence, cigarettes, uncomplicated; Z88.6 Allergy status to analgesic agent

== ENCOUNTER 2019-10-17 17:17 | Emergency (ER) | payer OTHER, MEDICAID ==
[~2019-10-17] VITALS: Ht 182.9 cm; Wt 77.1 kg
[2019-10-17] MEDS ORDERED: KEFLEX500 M1 PO (17:59)
[2019-10-17 18:20] VITALS: BP 100/47
== END 2019-10-17 18:24 ==
LOC: M.ERS 17:17
DX: S71.151A Open bite, right thigh, initial encounter (principal); S70.211A Abrasion, right hip, initial encounter; I10 Essential (primary) hypertension; F17.210 Nicotine dependence, cigarettes, uncomplicated; Z88.6 Allergy status to analgesic agent; W54.0XXA Bitten by dog, initial encounter; Y93.89 Activity, other specified; Y92.89 Other specified places as the place of occurrence of the external cause; Y99.8 Other external cause status

== ENCOUNTER 2019-10-19 19:45 | Inpatient (IN) | payer OTHER, MEDICAID ==
[~2019-10-19] VITALS: Ht 182.9 cm; Wt 84.4 kg
[2019-10-19 19:47] VITALS: BP 125/77
[2019-10-19 20:09] LABS: ABSOLUTE BASOPHILS 0.1 thou/uL (0.0-0.2); ABSOLUTE EOSINOPHILS 0.3 thou/uL (0.0-0.7); ABSOLUTE LYMPHOCYTES 2.4 thou/uL (0.8-5.3); ABSOLUTE NEUTROPHILS 7.8 thou/uL (1.6-8.1); BASOPHILS 0.6 %; EOSINOPHILS 2.4 %; HEMOGLOBIN 12.9 gm/dL (14.0-18.0); MCH 33.8 pg (26.0-34.0); MCHC 34.9 g/dL (28.0-37.0); MCV 96.8 fL (80.0-100.0); MONOCYTES 8.4 %; NUCLEATED RBCS 0 /100WBC; PLATELET COUNT* 362 thou/uL (150-400); POLYS 67.6 %; RBC 3.82 mil/uL (4.50-6.00); RDW-CV 15.7 % (10.5-14.5); WBC 11.5 thou/uL (4.0-11.0)
[2019-10-19 20:12] LABS: CALCIUM 8.8 mg/dL (8.5-10.1); CREATININE 0.9 mg/dL (0.6-1.3); POTASSIUM 3.3 mmol/L (3.5-5.1)
[2019-10-19 23:14] VITALS: BP 155/75
[2019-10-20 00:36] VITALS: BP 135/78
--- NOTE | 2019-10-20 06:09 | NUR ---
REPORT RECIEVED FROM ER. PT ORIENTED TO ROOM, CALL LIGHT SHOWN, FALL AGREEMENT WENT OVER, PT STATED UNDERSTANDING. IV PATENT, FLUIDS INFUSING. PICTURES TAKEN. WILL CONTINUE WITH PLAN OF CARE.
[2019-10-20 08:00] VITALS: BP 124/62
--- NOTE | 2019-10-20 13:58 | NUR ---
SW attempted to speak with pt to complete initial assessment, pt did not answer. SW called pt mother's cell phone with no answer. Pt homeless, per previous record, resources and community referral list provided to pt. SW to remain available to assist with safe dc planning.
[2019-10-20 15:49] VITALS: BP 128/64
--- NOTE | 2019-10-20 18:39 | NUR ---
ASSUMED PT CARE REPORT RECEIVED FORM NURSE. PT IS AOX4. MEDSURG STATUS. IV FLUID INFUSING ORDERED. PT DENIES PAIN IN THE AM. IV ANTIBIOTICS GIVEN. LATER IN THE DAY PT TOOK A SHOWER AND HYDROCODONE/TYLENOL GIVEN FOR PAIN IN THE LEG WHICH PATIENT DESCRIBES A LEVEL OF FOUR. WOUND CARE PERFORMED BY THIS MURSE . SEE CHART. PT IS UP AD CHANDU. CALL LIGHT STAYED WITHIN REACH
[2019-10-20 19:30] VITALS: BP 124/76
[2019-10-21] VITALS: BP 120/69
--- NOTE | 2019-10-21 06:41 | NUR ---
PT ALERT NAD ORIENTED. UP AD CHANDU. VSS ON RA. MEDS GIVEN PER EMAR. PAIN MEDS GIVEN THIS SHIFT. AT ABOUT 0300, PT CALLED OUT THAT HIS LEFT SHOULDER HAVE DISLOCATED. PT HAS HX OF CHRONIC LEFT SHOULDER DISLOCATION. PT VOICED THAT HE WAS TRYING TO ADJUST HIS PILLOW AND HIS SHOULDER POPPED. PER DR RUCKER, ORTHO CONSULT REQUESTED. ORTHO RESIDENT CURRENTLY WITH PT ATTEMPTING TO REALIGN SHOULDER. CALL LIGHT WITHIN REACH. HOURLY ROUNSINGS MADE. WILL CONTINUE TO MONITOR.
[2019-10-21 07:24] LABS: HEMATOCRIT 36.8 % (42.0-52.0); HEMOGLOBIN 12.5 gm/dL (14.0-18.0); MCH 33.3 pg (26.0-34.0); MCV 97.9 fL (80.0-100.0); MPV 7.3 fl. (7.2-11.1); RBC 3.76 mil/uL (4.50-6.00); RDW-CV 15.5 % (10.5-14.5); WBC 6.5 thou/uL (4.0-11.0)
[2019-10-21 07:41] LABS: ALBUMIN 2.8 g/dL (3.4-5.0); CREATININE 0.8 mg/dL (0.6-1.3); MAGNESIUM 1.9 mg/dL (1.8-2.4); POTASSIUM 4.2 mmol/L (3.5-5.1); TOTAL BILIRUBIN 0.2 mg/dL (<0.1-1.0); TOTAL PROTEIN 5.8 g/dL (6.4-8.2)
[2019-10-21 08:00] VITALS: BP 143/92
--- NOTE | 2019-10-21 08:45 | NUR ---
CM spoke with Pt via phone. Pt states that he has been staying with his parents and kids, but states that he is homeless. Pt does not think that his parent's will let him return at dc, Pt states that he has a couple of options of where he can go at dc. No DME, Pt states that he has been using a walker while in the hospital, so may need one at dc. No hx of HH or SNF. Possible need for IVABX, CM following.
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
[2019-10-21 16:00] VITALS: BP 137/79
--- NOTE | 2019-10-21 16:06 | NUR ---
ASSUMED PT CARE REPORT RECEIVED FROM NURSE. PATIENT IS AOX4, ON RA. MEDSURG STATUS. COMPLAINS OF PAIN IN BILATERAL LEGS. PAIN MEDICINE GIVEN. VSS. IV ANTIBIOTIC GIVEN. WOUND CARE SAW PT IN ROOM. LEFT SHOULDER PLACED IN A SLING IMMOBILIZER. SLING WAS REMOVED ONCE THIS SHIFT WHEN PT WENT IN THE SHOWER. THEN SLING WAS REAPPLIED. WOUND CARE PERFORMED. PT WALKED IN HALLWAY MULTIPLE TIMES DURING THIS SHIFT. NO FURTHER COMPLAINT. WILL CONTINUE TO MONITOR
[2019-10-21 20:15] VITALS: BP 120/63
[2019-10-21 23:58] VITALS: BP 125/75
--- NOTE | 2019-10-22 04:26 | NUR ---
ASSUMED CARE OF PT 10/21/19 AT AT APPROX 1930. PT A&OX4, ON ROOM AIR, VSS, PAIN MEDS REQUESTED AND GIVEN ORDERED. ASSESSMENTS AND HOURLY ROUNDINGS COMPLETED. WILL CONTINUE TO MONITOR.
[2019-10-22 07:55] VITALS: BP 126/76
--- NOTE | 2019-10-22 16:54 | NUR ---
PT A&Ox4. VITALS STABLE. IV PATENT. PAIN CONTROLLED WITH PO PAIN MEDS. DRESSING CHANGED BY ORTHO. ORTHO MESSAGED PER WOUND NURSE TO LOOK AT POSSIBLE CLOTH IN WOUND. ORTHO STATED THAT IT WAS NERVES, NOT CLOTHING IN THE WOUND. UP AD CHANDU. DENIED NAUSEA/VOMITING. CALL LIGHT WITHIN REACH. WILL CONTINUE TO MONITOR.
[2019-10-22 19:40] VITALS: BP 129/66
[2019-10-23] VITALS: BP 159/87
--- NOTE | 2019-10-23 04:09 | NUR ---
ASSUMED CARE OF PT 10/22/19 AT APPROX 1930. PT A&OX4, ON ROOM AIR, VSS, UP AD CHANDU, PAIN MEDS REQUESTED AND GIVEN ORDERED. ASSESSMENTS AND HOURLY ROUNDINGS COMPLETE, WILL CONTINUE TO MONITOR.
[2019-10-23 07:47] VITALS: BP 132/83
[2019-10-23 11:59] VITALS: BP 125/65
[2019-10-23 16:44] VITALS: BP 139/68
--- NOTE | 2019-10-23 18:08 | NUR ---
PT A&Ox4. VITALS STABLE. IV PATENT. PAIN PARTIALLY CONTROLLED. UP AD CHANDU. DENIED N/V. DRESSINGS CHANGED. CALL LIGHT WITHIN REACH. WILL CONTINUE TO MONITOR.
[2019-10-23 20:00] VITALS: BP 149/78
[2019-10-24 00:25] VITALS: BP 122/99
--- NOTE | 2019-10-24 06:08 | NUR ---
PATIENT SLEPT PART OF THE NIGHT. PATIENT WAS GIVEN PAIN MEDICINE ABOUT EVERY THREE HOURS. IV REMAINS SALINE LOCKED. PATIENT COULD POSSIBLY DC HOME TODAY. WILL CONTINUE TO MONITOR.
[2019-10-24 07:40] VITALS: BP 125/86
[2019-10-24] MEDS ORDERED: NORCO 10-325 T1 EACH PO (09:29)
[2019-10-24] MEDS ORDERED: AMOX TR-K CLV1 EAC3 PO (09:29)
[2019-10-24 10:49] VITALS: BP 125/86
--- NOTE | 2019-10-24 12:10 | NUR ---
ASSUMED CARE OF PATIENT AT APPROX 0730. ALERT AND ORIENTED X4. ASSESSMENT COMPLETED AND CHARTED. VSS ON ROOM AIR. PAIN MANAGED WITH ORAL NORCO. PATIENT DISCHARGED AT 1143 WITH ALL PERSONAL BELONGINGS AND DISCHARGE INSTRUCTIONS.
== END 2019-10-24 11:43 | disposition home or self-care (01) | DRG 872 ==
LOC: M.ERS 19:45 → M.TBA-ER 22:35 → M.2W 22:35
PROVIDERS: Internal Medicine; Personal Emergency Response Attendant; ADMIT Internal Medicine
DX: A41.9 Sepsis, unspecified organism (principal); M60.003 Infective myositis, unspecified right leg; I10 Essential (primary) hypertension; F43.10 Post-traumatic stress disorder, unspecified; S43.005A Unspecified dislocation of left shoulder joint, initial encounter; S43.002A Unspecified subluxation of left shoulder joint, initial encounter; F17.210 Nicotine dependence, cigarettes, uncomplicated; F19.10 Other psychoactive substance abuse, uncomplicated; Z88.8 Allergy status to other drugs, medicaments and biological substances; S81.851A Open bite, right lower leg, initial encounter; W54.0XXA Bitten by dog, initial encounter; Y93.89 Activity, other specified; Y92.89 Other specified places as the place of occurrence of the external cause; Y99.8 Other external cause status; Z59.0 Homelessness

== ENCOUNTER 2019-10-29 15:05 | Emergency (ER) | payer OTHER, MEDICAID ==
[~2019-10-29] VITALS: Ht 182.9 cm; Wt 81.7 kg
[~2019-10-29 15:05] MED LIST changes: +AMOX TR-K CLV1 EAC3 PO; +NORCO 10-325 T1 EACH PO
[2019-10-29 16:04] VITALS: BP 136/67
== END 2019-10-29 16:09 | disposition home or self-care (01) ==
LOC: M.ERS 15:05
DX: M79.651 Pain in right thigh (principal); M79.18 Myalgia, other site; I10 Essential (primary) hypertension; F17.210 Nicotine dependence, cigarettes, uncomplicated; Z88.6 Allergy status to analgesic agent

== ENCOUNTER 2019-11-11 14:43 | Emergency (ER) | payer OTHER, MEDICAID ==
[~2019-11-11] VITALS: Ht 175.3 cm; Wt 77.4 kg
[2019-11-11 14:43] VITALS: BP 142/78
== END 2019-11-11 14:55 | disposition home or self-care (01) ==
LOC: M.ERS 14:43
DX: R53.1 Weakness (principal); I10 Essential (primary) hypertension; F17.210 Nicotine dependence, cigarettes, uncomplicated; Z88.6 Allergy status to analgesic agent

== ENCOUNTER 2019-11-21 02:41 | Emergency (ER) | payer OTHER, MEDICAID ==
[~2019-11-21] VITALS: Ht 182.9 cm; Wt 77.1 kg
[2019-11-21 04:35] VITALS: BP 146/83
== END 2019-11-21 04:35 | disposition home or self-care (01) ==
LOC: M.ERS 02:41
DX: S43.015A Anterior dislocation of left humerus, initial encounter (principal); I10 Essential (primary) hypertension; F17.210 Nicotine dependence, cigarettes, uncomplicated; Z88.6 Allergy status to analgesic agent; W01.0XXA Fall on same level from slipping, tripping and stumbling without subsequent striking against object, initial encounter; Y93.89 Activity, other specified; Y92.89 Other specified places as the place of occurrence of the external cause; Y99.8 Other external cause status

== ENCOUNTER 2019-12-06 00:38 | Emergency (ER) | payer OTHER, MEDICAID ==
[~2019-12-06] VITALS: Ht 182.9 cm; Wt 77.1 kg
[2019-12-06 02:51] VITALS: BP 130/70
== END 2019-12-06 02:51 | disposition home or self-care (01) ==
LOC: M.ERS 00:38
DX: S43.005A Unspecified dislocation of left shoulder joint, initial encounter (principal); I10 Essential (primary) hypertension; F17.210 Nicotine dependence, cigarettes, uncomplicated; Z88.6 Allergy status to analgesic agent; Z98.890 Other specified postprocedural states; X50.1XXA Overexertion from prolonged static or awkward postures, initial encounter; Y93.89 Activity, other specified; Y92.89 Other specified places as the place of occurrence of the external cause; Y99.9 Unspecified external cause status

== ENCOUNTER 2019-12-07 08:39 | Emergency (ER) | payer OTHER, MEDICAID ==
[~2019-12-07] VITALS: Ht 182.9 cm; Wt 77.1 kg
[2019-12-07 12:08] VITALS: BP 135/92
== END 2019-12-07 12:10 | disposition home or self-care (01) ==
LOC: M.ERS 08:39
DX: S43.005A Unspecified dislocation of left shoulder joint, initial encounter (principal); I10 Essential (primary) hypertension; F17.210 Nicotine dependence, cigarettes, uncomplicated; Z88.6 Allergy status to analgesic agent; X58.XXXA Exposure to other specified factors, initial encounter; Y93.89 Activity, other specified; Y92.89 Other specified places as the place of occurrence of the external cause; Y99.8 Other external cause status

== ENCOUNTER → 2020-01-01 | Emergency (ER) | payer OTHER, MEDICAID ==
[~2020-01-01] VITALS: Ht 182.9 cm; Wt 81.7 kg
[2020-01-01 01:49] LABS: ABSOLUTE BASOPHILS 0.1 thou/uL (0.0-0.2); ABSOLUTE EOSINOPHILS 0.3 thou/uL (0.0-0.7); ABSOLUTE LYMPHOCYTES 2.4 thou/uL (0.8-5.3); ABSOLUTE MONOCYTES 0.9 thou/uL (0.0-1.2); ABSOLUTE NEUTROPHILS 6.3 thou/uL (1.6-8.1); BASOPHILS 0.7 %; EOSINOPHILS 3.4 %; HEMATOCRIT 43.5 % (42.0-52.0); HEMOGLOBIN 15.2 gm/dL (14.0-18.0); LYMPHOCYTES 23.5 %; MCH 34.3 pg (26.0-34.0); MCHC 34.8 g/dL (28.0-37.0); MCV 98.5 fL (80.0-100.0); MONOCYTES 9.5 %; MPV 6.9 fl. (7.2-11.1); NUCLEATED RBCS 0 /100WBC; PLATELET COUNT* 331 thou/uL (150-400); POLYS 62.9 %; RBC 4.41 mil/uL (4.50-6.00); RDW-CV 14.7 % (10.5-14.5)
[2020-01-01 01:58] LABS: CALCIUM 8.2 mg/dL (8.5-10.1); CREATININE 0.8 mg/dL (0.6-1.3); POTASSIUM 3.2 mmol/L (3.5-5.1)
[2020-01-01 02:03] LABS: ALBUMIN 3.4 g/dL (3.4-5.0); MAGNESIUM 1.9 mg/dL (1.8-2.4); TOTAL BILIRUBIN 0.2 mg/dL (<0.1-1.0); TOTAL PROTEIN 6.2 g/dL (6.4-8.2)
[2020-01-01 03:19] LABS: AMP/METHAMP POSITIVE (Negative); BARBITURATES Negative (Negative); BENZODIAZEPINES Negative (Negative); COCAINE Negative (Negative); METHADONE Negative (Negative); OPIATES Negative (Negative); PCP Negative (Negative); THC POSITIVE (Negative)
[2020-01-01 04:28] VITALS: BP 126/81
== END ==
LOC: M.ERS 00:37
PROVIDERS: Emergency Medicine
DX: F10.10 Alcohol abuse, uncomplicated (principal); F15.10 Other stimulant abuse, uncomplicated; R11.10 Vomiting, unspecified; F17.210 Nicotine dependence, cigarettes, uncomplicated; I10 Essential (primary) hypertension; F43.10 Post-traumatic stress disorder, unspecified; Z88.5 Allergy status to narcotic agent; Y90.0 Blood alcohol level of less than 20 mg/100 ml

== ENCOUNTER 2020-01-17 18:19 | Emergency (ER) | payer OTHER, MEDICAID | END 2020-01-17 19:14 | disposition home or self-care (01) | LOC: M.ERS 18:19 | DX: M24.212 Disorder of ligament, left shoulder (principal); I10 Essential (primary) hypertension; F17.210 Nicotine dependence, cigarettes, uncomplicated; Z88.6 Allergy status to analgesic agent ==

== ENCOUNTER 2020-01-23 14:06 | Emergency (ER) | payer OTHER, MEDICAID ==
[~2020-01-23] VITALS: Ht 182.9 cm; Wt 81.7 kg
[2020-01-23 16:25] VITALS: BP 116/79
== END 2020-01-23 16:25 | disposition home or self-care (01) ==
LOC: M.ERS 14:06
DX: S43.085A Other dislocation of left shoulder joint, initial encounter (principal); I10 Essential (primary) hypertension; F17.210 Nicotine dependence, cigarettes, uncomplicated; Z88.6 Allergy status to analgesic agent; W06.XXXA Fall from bed, initial encounter; Y93.89 Activity, other specified; Y92.148 Other place in prison as the place of occurrence of the external cause; Y99.8 Other external cause status

== ENCOUNTER 2020-03-15 05:09 | Emergency (ER) | payer OTHER, MEDICAID ==
[~2020-03-15] VITALS: Ht 182.9 cm; Wt 81.7 kg
[2020-03-15] MEDS ORDERED: NAPROSYN500 MG PO ×2 (05:58)
[2020-03-15] MEDS ORDERED: MUPIROCIN15 GM TOP (06:01)
[2020-03-15 06:20] VITALS: BP 101/58
== END 2020-03-15 06:52 | disposition home or self-care (01) ==
LOC: M.ERS 05:09
DX: S90.822A Blister (nonthermal), left foot, initial encounter (principal); S90.821A Blister (nonthermal), right foot, initial encounter; I10 Essential (primary) hypertension; F17.210 Nicotine dependence, cigarettes, uncomplicated; Z88.6 Allergy status to analgesic agent; X58.XXXA Exposure to other specified factors, initial encounter; Y93.89 Activity, other specified; Y92.89 Other specified places as the place of occurrence of the external cause; Y99.8 Other external cause status

== ENCOUNTER 2020-03-22 23:33 | Emergency (ER) | payer OTHER, MEDICAID ==
[~2020-03-22] VITALS: Ht 182.9 cm; Wt 81.7 kg
[~2020-03-22 23:33] MED LIST changes: +MUPIROCIN15 GM TOP; +NAPROSYN500 MG PO
[2020-03-22 23:36] VITALS: BP 127/105
== END 2020-03-23 00:35 | disposition home or self-care (01) ==
LOC: M.ERS 23:33
DX: S90.822A Blister (nonthermal), left foot, initial encounter (principal); S90.821A Blister (nonthermal), right foot, initial encounter; I10 Essential (primary) hypertension; F17.210 Nicotine dependence, cigarettes, uncomplicated; Z88.6 Allergy status to analgesic agent; W22.8XXA Striking against or struck by other objects, initial encounter; Y93.89 Activity, other specified; Y92.89 Other specified places as the place of occurrence of the external cause; Y99.8 Other external cause status

== ENCOUNTER 2020-03-30 18:44 | Emergency (ER) | payer OTHER, MEDICAID ==
[~2020-03-30] VITALS: Ht 182.9 cm; Wt 77.1 kg
[2020-03-30 20:08] VITALS: BP 140/82
== END 2020-03-30 20:11 | disposition home or self-care (01) ==
LOC: M.ERS 18:44
DX: S43.085A Other dislocation of left shoulder joint, initial encounter (principal); Z59.0 Homelessness; Z88.6 Allergy status to analgesic agent; X50.9XXA Other and unspecified overexertion or strenuous movements or postures, initial encounter; Y93.89 Activity, other specified; Y92.89 Other specified places as the place of occurrence of the external cause; Y99.8 Other external cause status

== ENCOUNTER 2020-04-01 17:30 | Emergency (ER) | payer OTHER, MEDICAID ==
[~2020-04-01] VITALS: Ht 182.9 cm; Wt 77.1 kg
[2020-04-01] MEDS ORDERED: IBUPROFEN 800800 M1 PO (17:58)
[2020-04-01 18:36] VITALS: BP 136/85
== END 2020-04-01 18:37 | disposition home or self-care (01) ==
LOC: M.ERS 17:30
DX: S43.005A Unspecified dislocation of left shoulder joint, initial encounter (principal); F17.210 Nicotine dependence, cigarettes, uncomplicated; Z59.0 Homelessness; Z88.6 Allergy status to analgesic agent; X58.XXXA Exposure to other specified factors, initial encounter; Y93.89 Activity, other specified; Y92.89 Other specified places as the place of occurrence of the external cause; Y99.8 Other external cause status

== ENCOUNTER 2020-04-02 04:06 | Emergency (ER) | payer OTHER, MEDICAID ==
[~2020-04-02] VITALS: Ht 182.9 cm; Wt 77.1 kg
[2020-04-02 04:45] VITALS: BP 142/86
== END 2020-04-02 05:14 | disposition home or self-care (01) ==
LOC: M.ERS 04:06
DX: S43.005A Unspecified dislocation of left shoulder joint, initial encounter (principal); F17.210 Nicotine dependence, cigarettes, uncomplicated; Z59.0 Homelessness; Z88.6 Allergy status to analgesic agent; X58.XXXA Exposure to other specified factors, initial encounter; Y93.89 Activity, other specified; Y92.89 Other specified places as the place of occurrence of the external cause; Y99.8 Other external cause status

== ENCOUNTER 2020-04-25 01:15 | Emergency (ER) | payer OTHER, MEDICAID ==
[~2020-04-25] VITALS: Ht 182.9 cm; Wt 72.6 kg
[2020-04-25 06:27] VITALS: BP 105/60
== END 2020-04-25 06:28 | disposition home or self-care (01) ==
LOC: M.ERS 01:15
DX: S43.085A Other dislocation of left shoulder joint, initial encounter (principal); F17.210 Nicotine dependence, cigarettes, uncomplicated; Z88.6 Allergy status to analgesic agent; X58.XXXA Exposure to other specified factors, initial encounter; Y93.02 Activity, running; Y92.89 Other specified places as the place of occurrence of the external cause; Y99.8 Other external cause status

== ENCOUNTER 2020-05-07 16:00 | Emergency (ER) | payer OTHER, MEDICAID ==
[~2020-05-07] VITALS: Ht 182.9 cm; Wt 77.1 kg
[2020-05-07 16:14] VITALS: BP 135/84
== END 2020-05-07 16:16 | disposition home or self-care (01) ==
LOC: M.ERS 16:00
DX: G40.89 Other seizures (principal); F17.210 Nicotine dependence, cigarettes, uncomplicated

== ENCOUNTER 2020-05-15 13:17 | Inpatient (IN) | payer OTHER, MEDICAID ==
[~2020-05-15] VITALS: Ht 182.9 cm; Wt 81.7 kg
[2020-05-15 13:18] VITALS: BP 138/78
[2020-05-15 13:44] LABS: ABSOLUTE BASOPHILS 0.1 thou/uL (0.0-0.2); ABSOLUTE EOSINOPHILS 0.1 thou/uL (0.0-0.7); ABSOLUTE LYMPHOCYTES 2.5 thou/uL (0.8-5.3); ABSOLUTE MONOCYTES 0.8 thou/uL (0.0-1.2); ABSOLUTE NEUTROPHILS 4.3 thou/uL (1.6-8.1); BASOPHILS 0.7 %; HEMATOCRIT 48.6 % (42.0-52.0); HEMOGLOBIN 16.2 gm/dL (14.0-18.0); MCH 34.8 pg (26.0-34.0); MCHC 33.2 g/dL (28.0-37.0); MCV 104.8 fL (80.0-100.0); MONOCYTES 10.8 %; MPV 7.2 fl. (7.2-11.1); NUCLEATED RBCS 0 /100WBC; PLATELET COUNT* 352 thou/uL (150-400); POLYS 55.5 %; RBC 4.64 mil/uL (4.50-6.00); RDW-CV 15.4 % (10.5-14.5); WBC 7.8 thou/uL (4.0-11.0)
[2020-05-15 13:53] LABS: CREATININE 0.9 mg/dL (0.6-1.3); POTASSIUM 4.8 mmol/L (3.5-5.1)
[2020-05-15 13:58] LABS: ALBUMIN 3.6 g/dL (3.4-5.0); TOTAL BILIRUBIN 0.6 mg/dL (<0.1-1.0); TOTAL PROTEIN 7.7 g/dL (6.4-8.2)
[2020-05-15 16:16] LABS: URINE BILIRUBIN NEGATIVE (Negative); URINE BLOOD TRACE (Negative); URINE CLARITY CLEAR; URINE COLOR YELLOW; URINE GLUCOSE-RANDOM NEGATIVE (Negative); URINE KETONES NEGATIVE (Negative); URINE LEUKOCYTES-REFLEX NEGATIVE (Negative); URINE NITRITE-REFLEX NEGATIVE (Negative); URINE PROTEIN TRACE (Negative); URINE SPECIFIC GRAVITY >= 1.030 (1.005-1.030); URINE UROBILINOGEN 0.2 E.U./dl (0.2-1.0)
[2020-05-15 16:18] LABS: APTT 24.6 Seconds (25.0-31.3); PROTIME 10.6 Seconds (9.20-11.50)
[2020-05-15 16:28] LABS: AMP/METHAMP POSITIVE (Negative); BARBITURATES Negative (Negative); BENZODIAZEPINES Negative (Negative); COCAINE Negative (Negative); METHADONE Negative (Negative); OPIATES Negative (Negative); PCP Negative (Negative); THC Negative (Negative)
[2020-05-15 18:08] VITALS: BP 125/80
[2020-05-15 18:20] VITALS: BP 139/87
--- NOTE | 2020-05-16 09:51 | EKG ---
[place] [address] ELECTROCARDIOGRAM REPORT Name: FAMILIA WOODS Room: [address] IN M.R.#: [id number] Admission: 05/15/20 Attend Phys: Josiah Harrison Discharge: 05/15/20 Date of : 76 Date of Service: 05/15/20 1322 Report #: [id number] THIS REPORT FOR: //name// [facility] ED Test Date: 2020-05-15 Test Time: 13:22:34 Pat Name: FAMILIA WOODS Department: Room: [facility] Gender: M Fiscal Technician: BL[place] : 1980 Requested By: Tej Becker Order Number: [id number] MD: Karan Osullivan Measurements Intervals [place] Rate: 124 P: 75 [place]: 130 QRS: 90 QRSD: 104 T: 56 QT: 318 QTc: 457 Interpretive Statements Sinus tachycardia Consider right atrial enlargement Left posterior fascicular block ST elev, probable normal early repol pattern Compared to ECG 08/15/2019 02:22:02 Left posterior fascicular block now present Sinus rhythm no longer present ST (T wave) deviation still present Electronically Signed On 05-16-2020 9:50:56 CLIENT SERVICE REPRESENTATIVE by Karan Osullivan [email or web address] <ELECTRONICALLY SIGNED> By: Alize Osullivan MD, [facility] 05/16/20 0950 21 132 Alize Osullivan MD, [facility] /EPI
== END 2020-05-15 20:00 | disposition left against medical advice (07) | DRG 441 ==
LOC: M.ERS 13:17 → M.TBA-ER 15:53 → M.2W 18:34
PROVIDERS: Internal Medicine Gastroenterology; Nurse Practitioner Psychiatric/Mental Health; ADMIT Internal Medicine; ATTEND Internal Medicine
DX: B17.9 Acute viral hepatitis, unspecified (principal); R65.11 Systemic inflammatory response syndrome (SIRS) of non-infectious origin with acute organ dysfunction; F15.10 Other stimulant abuse, uncomplicated; F17.210 Nicotine dependence, cigarettes, uncomplicated; Z59.0 Homelessness; Z79.899 Other long term (current) drug therapy; Z88.8 Allergy status to other drugs, medicaments and biological substances; Z53.29 Procedure and treatment not carried out because of patient's decision for other reasons

== ENCOUNTER 2020-05-28 15:05 | Emergency (ER) | payer OTHER, MEDICAID ==
[~2020-05-28] VITALS: Ht 182.9 cm; Wt 77.1 kg
[2020-05-28 15:32] LABS: ABSOLUTE BASOPHILS 0.1 thou/uL (0.0-0.2); ABSOLUTE EOSINOPHILS 0.1 thou/uL (0.0-0.7); ABSOLUTE LYMPHOCYTES 1.6 thou/uL (0.8-5.3); ABSOLUTE MONOCYTES 0.8 thou/uL (0.0-1.2); ABSOLUTE NEUTROPHILS 4.4 thou/uL (1.6-8.1); BASOPHILS 0.8 %; EOSINOPHILS 1.6 %; HEMOGLOBIN 14.5 gm/dL (14.0-18.0); LYMPHOCYTES 23.4 %; MCH 34.7 pg (26.0-34.0); MCHC 34.5 g/dL (28.0-37.0); MCV 100.5 fL (80.0-100.0); MONOCYTES 11.4 %; MPV 6.5 fl. (7.2-11.1); NUCLEATED RBCS 0 /100WBC; PLATELET COUNT* 309 thou/uL (150-400); POLYS 62.8 %; RBC 4.18 mil/uL (4.50-6.00); RDW-CV 13.7 % (10.5-14.5)
[2020-05-28 15:44] LABS: CALCIUM 8.8 mg/dL (8.5-10.1); CREATININE 0.8 mg/dL (0.6-1.3); POTASSIUM 3.8 mmol/L (3.5-5.1)
[2020-05-28 15:48] LABS: ALBUMIN 3.5 g/dL (3.4-5.0); TOTAL BILIRUBIN 0.6 mg/dL (<0.1-1.0); TOTAL PROTEIN 6.9 g/dL (6.4-8.2)
[2020-05-28 16:30] VITALS: BP 151/93
== END 2020-05-28 16:30 | disposition home or self-care (01) ==
LOC: M.ERS 15:05
PROVIDERS: Family Medicine
DX: R10.9 Unspecified abdominal pain (principal)

== ENCOUNTER 2020-06-03 22:51 | Emergency (ER) | payer OTHER, MEDICAID ==
[~2020-06-03] VITALS: Ht 182.9 cm; Wt 77.1 kg
[2020-06-03 23:25] VITALS: BP 128/90
== END 2020-06-03 23:26 | disposition home or self-care (01) ==
LOC: M.ERS 22:51
DX: K27.9 Peptic ulcer, site unspecified, unspecified as acute or chronic, without hemorrhage or perforation (principal); F43.20 Adjustment disorder, unspecified; Z88.6 Allergy status to analgesic agent

== ENCOUNTER 2020-06-10 20:41 | Emergency (ER) | payer OTHER, MEDICAID ==
[~2020-06-10] VITALS: Ht 182.9 cm; Wt 77.1 kg
[2020-06-10 22:14] VITALS: BP 131/92
== END 2020-06-10 22:14 | disposition home or self-care (01) ==
LOC: M.ERS 20:41
DX: S43.015A Anterior dislocation of left humerus, initial encounter (principal); F17.210 Nicotine dependence, cigarettes, uncomplicated; Z88.6 Allergy status to analgesic agent; Z59.0 Homelessness; X50.9XXA Other and unspecified overexertion or strenuous movements or postures, initial encounter; Y93.89 Activity, other specified; Y92.89 Other specified places as the place of occurrence of the external cause; Y99.8 Other external cause status

== ENCOUNTER 2020-08-20 16:19 | Emergency (ER) | payer OTHER, MEDICAID ==
[~2020-08-20] VITALS: Ht 182.9 cm; Wt 77.6 kg
[2020-08-20 18:13] VITALS: BP 188/89
== END 2020-08-20 18:14 | disposition home or self-care (01) ==
LOC: M.ERS 16:19
DX: M24.411 Recurrent dislocation, right shoulder (principal); F17.210 Nicotine dependence, cigarettes, uncomplicated; Z88.6 Allergy status to analgesic agent; Z59.0 Homelessness

== ENCOUNTER 2020-09-01 20:59 | Emergency (ER) | payer OTHER, MEDICAID ==
[~2020-09-01] VITALS: Ht 182.9 cm; Wt 77.1 kg
[2020-09-01 22:55] VITALS: BP 122/80
== END 2020-09-01 22:56 | disposition home or self-care (01) ==
LOC: M.ERS 20:59
DX: M77.52 Other enthesopathy of left foot and ankle (principal); M77.51 Other enthesopathy of right foot and ankle; F17.210 Nicotine dependence, cigarettes, uncomplicated; Z88.6 Allergy status to analgesic agent; Z59.0 Homelessness

== ENCOUNTER 2020-10-01 19:42 | Emergency (ER) | payer OTHER, MEDICAID ==
[~2020-10-01] VITALS: Ht 182.9 cm; Wt 77.1 kg
[2020-10-01 20:41] VITALS: BP 154/65
== END 2020-10-01 20:42 | disposition home or self-care (01) ==
LOC: M.ERS 19:42
DX: M79.671 Pain in right foot (principal); M79.672 Pain in left foot; F17.210 Nicotine dependence, cigarettes, uncomplicated; Z88.6 Allergy status to analgesic agent; Z59.0 Homelessness

== ENCOUNTER 2020-11-02 16:33 | Emergency (ER) | payer OTHER, MEDICAID ==
[~2020-11-02] VITALS: Ht 172.7 cm; Wt 77.1 kg
[2020-11-02 17:36] VITALS: BP 125/66
== END 2020-11-02 17:37 ==
LOC: M.ERS 16:33
DX: M54.2 Cervicalgia (principal); F17.210 Nicotine dependence, cigarettes, uncomplicated; Z88.6 Allergy status to analgesic agent

== ENCOUNTER 2020-12-16 16:26 | Emergency (ER) | payer OTHER, MEDICAID ==
[~2020-12-16] VITALS: Ht 182.9 cm; Wt 81.7 kg
[2020-12-16 17:19] LABS: CALCIUM 7.7 mg/dL (8.5-10.1); CREATININE 0.7 mg/dL (0.6-1.3)
[2020-12-16] MEDS ORDERED: BACTRIM DS TAB1 EAC1 PO (17:46)
[2020-12-16 18:25] VITALS: BP 154/72
== END 2020-12-16 18:26 | disposition home or self-care (01) ==
LOC: M.ERS 16:26
PROVIDERS: Emergency Medicine Emergency Medical Services
DX: E87.6 Hypokalemia (principal); L73.9 Follicular disorder, unspecified; F17.210 Nicotine dependence, cigarettes, uncomplicated; Z88.6 Allergy status to analgesic agent; Z59.0 Homelessness

== ENCOUNTER 2021-01-25 19:31 | Inpatient (IN) | payer OTHER, MEDICAID ==
[~2021-01-25] VITALS: Ht 182.9 cm; Wt 81.7 kg
[~2021-01-25 19:31] MED LIST changes: +BACTRIM DS TAB1 EAC1 PO
[2021-01-25 19:33] VITALS: BP 135/75
[2021-01-25 20:42] LABS: HEMATOCRIT 41.8 % (42.0-52.0); HEMOGLOBIN 14.3 gm/dL (14.0-18.0); MCH 35.1 pg (26.0-34.0); MCHC 34.2 g/dL (28.0-37.0); MCV 102.7 fL (80.0-100.0); MPV 7.7 fl. (7.2-11.1); NUCLEATED RBCS 0 /100WBC; PLATELET COUNT* 301 thou/uL (150-400); RBC 4.07 mil/uL (4.50-6.00); RDW-CV 15.7 % (10.5-14.5); WBC 20.7 thou/uL (4.0-11.0)
[2021-01-25 20:51] LABS: CREATININE 3.2 mg/dL (0.6-1.3); POTASSIUM 4.2 mmol/L (3.5-5.1)
[2021-01-25 21:27] LABS: ALBUMIN 4.5 g/dL (3.4-5.0); DIRECT BILIRUBIN 1.1 mg/dL (<0.1-0.3); TOTAL BILIRUBIN 2.7 mg/dL (<0.1-1.0); TOTAL PROTEIN 7.9 g/dL (6.4-8.2)
[2021-01-25 21:38] LABS: ABSOLUTE LYMPHOCYTES 1.2 thou/uL (0.8-5.3); ABSOLUTE MONOCYTES 1.2 thou/uL (0.0-1.2); ABSOLUTE NEUTROPHILS 18.2 thou/uL (1.6-8.1); PLATELET ESTIMATE ADEQUATE
[2021-01-25 21:48] LABS: URINE BLOOD 3+ (Negative); URINE CLARITY CLEAR; URINE GLUCOSE-RANDOM NEGATIVE (Negative); URINE KETONES NEGATIVE (Negative); URINE LEUKOCYTES-REFLEX NEGATIVE (Negative); URINE NITRITE-REFLEX NEGATIVE (Negative); URINE PROTEIN 1+ (Negative); URINE SPECIFIC GRAVITY >= 1.030 (1.005-1.030); URINE UROBILINOGEN 0.2 E.U./dl (0.2-1.0)
[2021-01-25 21:49] LABS: ICTOTEST (BILI CONFIRMATORY) Negative (Negative); URINE BILIRUBIN 1+ (Negative); URINE COLOR DARK YELLOW
[2021-01-25 21:57] LABS: AMP/METHAMP POSITIVE (Negative); BARBITURATES Negative (Negative); BENZODIAZEPINES Negative (Negative); COCAINE Negative (Negative); METHADONE Negative (Negative); OPIATES POSITIVE (Negative); PCP Negative (Negative); THC Negative (Negative)
[2021-01-25 22:06] LABS: HYALINE CASTS >10 Many /LPF (None Seen); URINE WBC-REFLEX 0-5 Rare /HPF (0-5)
[2021-01-25 22:07] LABS: BACTERIA-REFLEX 1-9 Few /HPF (None Seen); CRYSTALS None Seen /LPF (None Seen); MUCUS None Seen strn/LPF (None Seen); SQUAMOUS NONE SEEN /LPF (0-3)
[2021-01-26 03:40] VITALS: BP 105/68
[2021-01-26 08:22] VITALS: BP 117/69
[2021-01-26 08:34] VITALS: BP 117/69
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
--- NOTE | 2021-01-26 14:13 | EKG ---
[place] [address] ELECTROCARDIOGRAM REPORT Name: FAMILIA WOODS Room: [address] ADM IN M.R.#: [id number] Admission: 01/25/21 Attend Phys: Josiah Harrison Discharge: Date of : 76 Date of Service: 01/25/211941 Report #: [id number] THIS REPORT FOR: //name// [facility] ED Test Date: 2021-01-25 Test Time: 19:42:37 Pat Name: FAMILIA WOODS Department: Room: [address] Gender: M Investor Relations Coordinator: : 1980 Requested By: Josiah Harrison Order Number: [id number] Reading MD: Isaac Covington Measurements Intervals [place] Rate: 108 P: 44 [place]: 127 QRS: 56 QRSD: 90 T: 43 QT: 353 QTc: 473 Interpretive Statements Sinus tachycardia ST elev, probable normal early repol pattern Compared to ECG 05/15/2020 13:22:34 Left posterior fascicular block no longer present ST (T wave) deviation still present Electronically Signed On 01-26-2021 14:13:46 CDT by Isaac Covington [email or web address] <ELECTRONICALLY SIGNED> By: Isaac Covington MD, FAC 01/26/21 1413 41 41 Isaac Covington MD, FAC /EPI
== END 2021-01-26 14:53 | disposition left against medical advice (07) | DRG 564 ==
LOC: M.ERS 19:31 → M.TBA-ER 23:01 → M.2W 23:01
PROVIDERS: Emergency Medicine; ADMIT Internal Medicine; ATTEND Internal Medicine
DX: T79.6XXA Traumatic ischemia of muscle, initial encounter (principal); N17.0 Acute kidney failure with tubular necrosis; K92.1 Melena; F12.90 Cannabis use, unspecified, uncomplicated; R74.01 Elevation of levels of liver transaminase levels; M17.9 Osteoarthritis of knee, unspecified; F43.10 Post-traumatic stress disorder, unspecified; S43.006A Unspecified dislocation of unspecified shoulder joint, initial encounter; F19.10 Other psychoactive substance abuse, uncomplicated; K52.9 Noninfective gastroenteritis and colitis, unspecified; Z53.29 Procedure and treatment not carried out because of patient's decision for other reasons; Z20.822 Contact with and (suspected) exposure to COVID-19; Z88.8 Allergy status to other drugs, medicaments and biological substances; Z87.891 Personal history of nicotine dependence; Z59.0 Homelessness; X58.XXXA Exposure to other specified factors, initial encounter; Y93.89 Activity, other specified; Y92.89 Other specified places as the place of occurrence of the external cause; Y99.8 Other external cause status

== ENCOUNTER 2021-06-06 22:45 | Emergency (ER) | payer OTHER, MEDICAID ==
[~2021-06-06] VITALS: Ht 182.9 cm; Wt 77.1 kg
[2021-06-07 00:30] VITALS: BP 124/77
== END 2021-06-07 01:00 | disposition left against medical advice (07) ==
LOC: M.ERS 22:45
DX: R78.9 Finding of unspecified substance, not normally found in blood (principal); Z53.21 Procedure and treatment not carried out due to patient leaving prior to being seen by health care provider